=== PATIENT | male | born 1975 | race African-American/Black ===

== ENCOUNTER 2019-10-18 19:59 | Emergency (ER) | payer OTHER ==
[~2019-10-18] VITALS: Ht 180.3 cm; Wt 81.8 kg
[2019-10-18] MEDS ORDERED: LIDOCAINE W/EPINEPHRINE 1% 20ML VIAL SC ONE (20:45)
[2019-10-18] MEDS ORDERED: ADACEL/BOOSTRIX VACCINE (DIPHTH/PERTUSS/ACELL/TETANUS)0.5ML SYR (90715) IM ONE (20:45)
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
[2019-10-18] MEDS ORDERED: IBUPROFEN 600 MG TAB As Ordered ONE (22:42)
[2019-10-18 22:45] VITALS: BP 138/79
[2019-10-18] MEDS ORDERED: IBUPROFEN 600 MG TAB PO ONE (22:45)
== END 2019-10-18 22:46 | disposition home or self-care (01) ==
LOC: M ED 19:59
DX: S01.81XA Laceration without foreign body of other part of head, initial encounter (principal); Y08.89XA Assault by other specified means, initial encounter; Y92.89 Other specified places as the place of occurrence of the external cause

== ENCOUNTER 2019-10-25 13:17 | Emergency (ER) | payer OTHER ==
[~2019-10-25] VITALS: Ht 180.3 cm; Wt 90.2 kg
[2019-10-25 13:18] VITALS: BP 143/60
== END 2019-10-25 13:56 | disposition home or self-care (01) ==
LOC: M ED 13:17
DX: Z48.02 Encounter for removal of sutures (principal)

== ENCOUNTER 2021-01-13 15:03 | Emergency (ER) | payer OTHER ==
[~2021-01-13] VITALS: Ht 180.3 cm; Wt 96.1 kg
[2021-01-13 17:10] VITALS: BP 145/94
== END 2021-01-13 17:11 | disposition home or self-care (01) ==
LOC: M ED 15:03
DX: G43.909 Migraine, unspecified, not intractable, without status migrainosus (principal); I10 Essential (primary) hypertension